=== PATIENT | male | born 1965 | race Caucasian/White ===

== ENCOUNTER 2017-02-15 18:09 | Emergency (ER) | payer SELFPAY ==
--- NOTE | 2017-02-15 18:13 | ED.PDOC ---
History of Present Illness - General Chief Complaint: Lower Extremity Injury Stated Complaint: laceration right leg Time Seen by Provider: 02/15/17 18:12 Source: patient Exam Limitations: no limitations - History of Present Illness Initial Comments: Floyd Villar 51 y/o male stated was painting the trim on his wall at home jump off the chair that he was standing and right leg grazed the back of chair sustaining skin laceration.His Td immunization UTD < 4 years.Denies other injuries Occurred: just prior to arrival Pain - Lower Extremity: mild: Right Elam Method of Injury: fell Improving Factors: rest Worsening Factors: nothing Allergies/Adverse Reactions: Allergies NO KNOWN ALLERGY Allergy (Verified 02/15/17 18:21) Home Medications: Ambulatory Orders NK [NK] 02/15/17 Review of Systems - Review of Systems Constitutional: States: no symptoms reported EENTM: States: no symptoms reported Respiratory: States: no symptoms reported Cardiology: States: no symptoms reported Musculoskeletal: States: see HPI Past Medical History (General) - Patient Medical History Hx Seizures: No Hx Asthma: No Hx Cardiac Disorders: No Hx Hypertension: No Family Medical History - Family History Brother Family History: No Known Father Family History: Unknown Living Status: Unknown Physical Exam - Physical Exam General Appearance: Alert, No apparent distress Eyes, Ears, Nose, Throat: normal ENT inspection Neck: full range of motion Cardiovascular/Respiratory: regular rate, rhythm, no M/R/G, normal peripheral pulses, normal breath sounds Gastrointestinal/Abdominal: non-tender Back: no vertebral tenderness Thigh/Hip: no evidence of injury Leg: lacerations - superficial linear laceration right leg, soft tissue tenderness - right leg Knee: no evidence of injury Ankle: no evidence of injury Foot: no evidence of injury Neuro/Tendon: normal motor functions, normal tendon functions Mental Status: oriented x 3 Skin: warm/dry Progress - Progress Progress: 02/15/17 18:24 Vital Signs - 8 hr 02/15/17 18:18 Temperature 98.4 F Pulse Rate [ 88 Left Brachial] Respiratory 20 Rate Blood Pressure 153/93 [Left Arm] O2 Sat by Pulse 97 Oximetry Wound cleanse and applied antibiotic ointment - EKG/XRAY/CT XRAY: leg - right no fracture Departure - Departure Clinical Impression: Skin abrasion, Pain in right leg Time of Disposition: 18:40 Disposition: Discharge to Home or Self Care Condition: Good Instructions: Skin Wound Home Medications: Ambulatory Orders NK [NK] 02/15/17 Additional Instructions: Ice pack to affected area 20 minutes 3 x a day for 3 days during waking hours only;Alev (OTC)-2 tablets am /pm for pain;apply Neosporin once a day in am for 7 -10 days or until better
[2017-02-15 18:21] VITALS: TEMP 98.4
--- NOTE | 2017-02-15 18:38 | RAD ---
EXAM DESCRIPTION: Tibia/Fibula,Right CLINICAL HISTORY: 51 years Male pain COMPARISON: None. TECHNIQUE: RIGHT tibia fibula, two views FINDINGS: No acute fractures or dislocations are identified. No osseous destructive lesions. IMPRESSION: No acute fracture is identified. Electronically signed by: Ilda Hernandez 02/15/2017 6:36 PM CDT
[2017-02-15] MEDS ORDERED: HYDROCOD/APAP 7.5/325 (ER DISP) #3 TAB PO ONE (18:41)
[2017-02-15] MEDS ORDERED: NEOMYCIN-BACITRACIN-POLYMYXIN 0.9 GM UD TOP ONE (18:55)
[2017-02-15] MEDS ORDERED: POVIDONE IODINE 10 % 15 ML UD TOP ONE (18:55)
[2017-02-15 19:04] VITALS: BP 136/88; O2SAT 98
== END 2017-02-15 19:04 | disposition home or self-care (01) ==
LOC: ER 18:09
DX: S80.811A Abrasion, right lower leg, initial encounter (principal); W22.03XA Walked into furniture, initial encounter; Y92.009 Unspecified place in unspecified non-institutional (private) residence as the place of occurrence of the external cause

== ENCOUNTER → 2018-02-15 | Outpatient (CLI) | payer OTHER | LOC: LAB.O 10:57 | PROVIDERS: ATTEND Nurse Practitioner Psychiatric/Mental Health | DX: F31.32 Bipolar disorder, current episode depressed, moderate (principal) ==

== ENCOUNTER → 2018-02-28 | Outpatient (CLI) | payer OTHER | LOC: YCFC.O 12:03 | PROVIDERS: ATTEND Family Medicine | DX: R94.6 Abnormal results of thyroid function studies (principal) ==